=== PATIENT | female | born 1985 | race Caucasian/White ===

== ENCOUNTER 2021-11-06 12:37 | Outpatient (CLI) | payer BC, SELFPAY ==
--- NOTE | ~2021-11-06 | US_ITS ---
EXAMINATION: US pelvic complete w TV DATE: 11/06/2021 14:19 INDICATION: EXCESSIVE AND FREQUENT MENSTRUATION TECHNIQUE: Multiple transabdominal and endovaginal sonographic images of the pelvis were obtained. COMPARISON: None. FINDINGS: Uterus: 8.2 x 5.9 x 6.8 cm. 3.4 x 2.8 x 2.3 cm uterine fibroid at uterine fundus. Endometrial complex measures 2.3 cm. Right Ovary: 3.6 x 3.6 x 3.6 cm. Vascular flow is present. Simple right ovarian cyst measuring up to 3.5 cm Left Ovary: 4.5 x 3.4 x 4.3 cm. Vascular flow is present. Complex left ovarian cyst measuring up to 4 .7 cm, containing anechoic and hypoechoic areas, with lacy, reticular internal echogenicities. No ivania e septae or nodules present. No vascular flow. There is no free fluid in the pelvis. IMPRESSION: 1. 3.4 cm fundal fibroid. 2. 4.7 cm likely left ovarian hemorrhagic cyst. 3. 3.5 cm simple right ovarian cyst. Reviewed, dictated and finalized at location K.
== END 2021-11-06 12:38 | disposition home or self-care (01) ==
PROVIDERS: PCP Family Medicine; Visit Provider Family Medicine
DX: N92.0 Excessive and frequent menstruation with regular cycle (principal); D25.9 Leiomyoma of uterus, unspecified; N83.201 Unspecified ovarian cyst, right side
CPT/HCPCS: 76830; 76856

== ENCOUNTER 2022-02-20 10:37 | Outpatient (CLI) | payer BC, SELFPAY ==
--- NOTE | ~2022-02-20 | US_ITS ---
EXAMINATION: US pelvic complete w TV DATE: 02/20/2022 12:00 INDICATION: Dysmenorrhea. TECHNIQUE: Multiple transabdominal and transvaginal sonographic images of the pelvis were obtained. COMPARISON: Ultrasound 11/06/2021 FINDINGS: TRANSABDOMINAL ULTRASOUND: The uterus measures 7.5 x 5.7 x 6.2 cm. There is no free fluid in the pelvis. TRANSVAGINAL ULTRASOUND: The endometrial complex measures 8 mm in thickness. There is a 2.9 cm intramural fibroid. The right o vary measures 3.0 x 2.1 x 1.7 cm. The left ovary measures 4.2 x 2.5 x 2.2 cm. There is normal vascula r flow in the ovaries. IMPRESSION: 1. 2.9 cm intramural fibroid. Reviewed, dictated and finalized at location A.
== END 2022-02-20 10:38 | disposition home or self-care (01) ==
PROVIDERS: PCP Family Medicine; Visit Provider Family Medicine
DX: D25.1 Intramural leiomyoma of uterus (principal); N94.6 Dysmenorrhea, unspecified
CPT/HCPCS: 76830; 76856